=== PATIENT | female | born 1960 | race Caucasian/White ===

== ENCOUNTER 2017-02-08 07:03 | Day surgery (SDC) | payer OTHER ==
[2017-02-08 07:44] VITALS: BMI 22.8
[2017-02-08] MEDS ORDERED: LIDOCAINE HCL 2% (20ML MULTI-DOSE VIAL) NR ONE (08:05)
[2017-02-08] MEDS ORDERED: PROPOFOL 20 ML ONE ×2 (08:05)
[2017-02-08 10:02] VITALS: TEMP 97.7
[2017-02-08 10:48] VITALS: BP 121/65; PULSE 60
--- NOTE | 2017-02-09 13:42 | PATH ---
Surgical Pathology Report Patient Name: BERTO CARROLL [facility]. Rec. #: [id number] /Age/Gender: 1960 (Age: 56) / F Account: [id number] Location: [facility]-ENDOSCOPY Taken: 02/08/2017 Received: 02/08/2017 Reported: 02/09/2017 Physicians: Celestino Dodson M.D. Specimen(s) Received SIGMOID COLON POLYP Clinical History History of colon polyps Colon polyp, diverticulosis Final Diagnosis COLON, SIGMOID, POLYP, POLYPECTOMY: TUBULAR ADENOMA. Electronically Signed Richard Crain M.D. Gross Description Received in formalin, labeled "sigmoid colon polyp" is a fraire, irregular portion of soft tissue measuring 0.3 cm in greatest dimension. The specimen is submitted in toto in one cassette. /02/08/201702/08/2017
== END 2017-02-08 11:01 | disposition home or self-care (01) ==
LOC: JASU-ENDO 07:03
PROVIDERS: ATTEND Internal Medicine Gastroenterology
PROC: 0DBN8ZX Excision of Sigmoid Colon, Via Natural or Artificial Opening Endoscopic, Diagnostic (ICD-10-PCS; principal; 2017-02-08 08:30)
DX: Z86.010 Personal history of colon polyps (principal); D12.5 Benign neoplasm of sigmoid colon; K63.5 Polyp of colon; K57.30 Diverticulosis of large intestine without perforation or abscess without bleeding
CPT/HCPCS: 88305-TC